=== PATIENT | female | born 1965 | race Caucasian/White ===

== ENCOUNTER → 2023-02-21 12:28 | Outpatient (CLI) | payer BC, SELFPAY ==
--- NOTE | ~2023-02-21 | CT_ITS ---
EXAMINATION: CTA chest DATE: 02/22/2023 08:01 [facility] INDICATION: Family history of ischemic heart disease TECHNIQUE: Computed tomographic angiography (CTA) of the chest was performed with 100 mL Omnipaque-35 0 intravenous contrast. The dose-length product was 255.25 mGy-cm. Maximum intensity projection 3D-re constructions of the aorta and other arteries were constructed by the technologist on a separate work station. Automated exposure control and iterative reconstruction technique were employed. COMPARISON: None. FINDINGS: No evidence for pulmonary embolism. No evidence for aneurysm or dissection. Heart size is n ormal. No significant pleural or pericardial effusion. Visualized aspects of the upper abdominal aort a are within normal limits with widely patent celiac axis, SMA and renal arteries. There are bilatera l breast implants. Lung parenchyma is unremarkable. No endobronchial lesions. No focal airspace disea se. No suspicious pulmonary nodules or masses. No pneumothorax. No significant bone or joint abnormal ity. IMPRESSION: 1. Unremarkable CT angiogram of the chest. Reviewed, dictated and finalized at location L. [facility]
== END ==
PROVIDERS: PCP Physician Assistant; Visit Provider Physician Assistant
DX: Z82.49 Family history of ischemic heart disease and other diseases of the circulatory system (principal)
CPT/HCPCS: 71275; Q9967